=== PATIENT | male | born 1990 | race Caucasian/White ===

== ENCOUNTER → 2017-06-21 | Outpatient (CLI) | payer OTHER ==
[~2017-06-21] MED LIST: AMOX1TAB12 PO; FLONASE16 GM NS; GILTUSS TR TAB1 EACH PO; MUPIROCIN15 GM TP; PROTONIX40 MG; SINGULAIR10 MG PO; TUSSI PRES-B L120 M1 PO; VENTOLIN HFA18 GM IH; ZITHROMAX TRI-500 MG PO; ZOVIRAX15 GM TP; ZOVIRAX400 M1 PO; ZYRTEC10 MG PO
== END | disposition home or self-care (01) ==
LOC: PPHC 11:20
DX: R42 Dizziness and giddiness (principal)

== ENCOUNTER 2018-05-16 09:41 | Outpatient (CLI) | payer OTHER | END 2018-05-16 10:13 | disposition home or self-care (01) | LOC: LAB 09:41 | DX: E03.8 Other specified hypothyroidism (principal); R10.9 Unspecified abdominal pain; Z13.1 Encounter for screening for diabetes mellitus; E78.2 Mixed hyperlipidemia; E55.9 Vitamin D deficiency, unspecified; Z11.3 Encounter for screening for infections with a predominantly sexual mode of transmission; Z11.4 Encounter for screening for human immunodeficiency virus [HIV] ==

== ENCOUNTER 2021-11-30 23:10 | Emergency (ER) | payer OTHER ==
[~2021-11-30] VITALS: Ht 172.7 cm; Wt 68.0 kg
[2021-12-02] MEDS ORDERED: PHENTERMINE H37.5 M1 (07:57)
[2021-12-02] MEDS ORDERED: DIPHENOXYLATE-1 EACH PO (12:27)
[2021-12-02] MEDS ORDERED: PROTONIX40 MG PO (12:27)
[2021-12-02] MEDS ORDERED: LEVSIN/SL0.125 MG SL (12:28)
== END 2021-12-01 14:23 | disposition left against medical advice (07) ==
LOC: ER 23:10
DX: R10.11 Right upper quadrant pain (principal); Z20.822 Contact with and (suspected) exposure to COVID-19; K80.20 Calculus of gallbladder without cholecystitis without obstruction

== ENCOUNTER 2021-12-01 15:09 | Inpatient (IN) | payer OTHER ==
[~2021-12-01] VITALS: Ht 172.7 cm; Wt 68.0 kg
--- NOTE | 2021-12-01 16:05 | NUR ---
SE RECIBE PTE ALERTA Y ORIENTADOX3 EL CUAL REFIERE VENIR POR DOLOR ABDOMINAL. SE MIDEN S/V A PTE Y SE COLOCA EN BLAYNE.
[2021-12-02] MEDS ORDERED: PHENTERMINE H37.5 M1 (07:57)
[2021-12-02] MEDS ORDERED: PROTONIX40 MG PO (12:27)
[2021-12-02] MEDS ORDERED: DIPHENOXYLATE-1 EACH PO (12:27)
[2021-12-02] MEDS ORDERED: LEVSIN/SL0.125 MG SL (12:28)
== END 2021-12-02 14:20 | disposition home or self-care (01) | DRG 446 ==
LOC: ER 15:09 → SURG 16:20
PROVIDERS: ADMIT Surgery; ATTEND Surgery
PROC: BF37ZZZ Magnetic Resonance Imaging (MRI) of Pancreas (ICD-10-PCS; principal; 2021-12-01)
DX: K80.11 Calculus of gallbladder with chronic cholecystitis with obstruction (principal); K58.8 Other irritable bowel syndrome; E80.6 Other disorders of bilirubin metabolism; Z20.822 Contact with and (suspected) exposure to COVID-19

== ENCOUNTER 2021-12-07 14:38 | Inpatient (IN) | payer OTHER ==
[~2021-12-07] VITALS: Ht 172.7 cm; Wt 68.0 kg
[~2021-12-07 14:38] MED LIST changes: +DIPHENOXYLATE-1 EACH PO; +LEVSIN/SL0.125 MG SL; +PHENTERMINE H37.5 M1; +PROTONIX40 MG PO
--- NOTE | 2021-12-07 14:50 | NUR ---
SE RECIBE PTE ALERTA, ORIENTADO X 3 ESFERAS REFIERE DOLOR ABDOMINAL SE ESTIMAN S/V SE UBICA EN AREA DE OBSERVACION.
--- NOTE | 2021-12-07 16:22 | NUR ---
PTE MASCULINO EVALUADO POR . SE ORIENTA SOBRE ORDENES DE TX REFIERE COMPRENDER. SE COLECTAN MUESTRAS DE LABORATORIOS Y SE CANALIZA VENA BAJO MEDIDAS ASEPTICAS. SE ADMINISTRA MEDICAMENTOS, BAJO MEDIDAS ASEPTICAS.
[2021-12-11] MEDS ORDERED: ULTRACET PO (10:09)
== END 2021-12-11 12:28 | disposition home or self-care (01) | DRG 419 ==
LOC: ER 14:38 → SURH 18:03
PROVIDERS: ADMIT Surgery; ATTEND Surgery
PROC: BF53200 Other Imaging of Gallbladder and Bile Ducts using Fluorescing Agent, Indocyanine Green Dye, Intraoperative (ICD-10-PCS; 2021-12-09)
PROC: 0FT44ZZ Resection of Gallbladder, Percutaneous Endoscopic Approach (ICD-10-PCS; principal; 2021-12-09 07:00)
DX: K80.11 Calculus of gallbladder with chronic cholecystitis with obstruction (principal); R10.11 Right upper quadrant pain; K58.8 Other irritable bowel syndrome; Z20.822 Contact with and (suspected) exposure to COVID-19

== ENCOUNTER 2024-04-03 13:18 | Inpatient (IN) | payer OTHER ==
[~2024-04-03] VITALS: Ht 172.7 cm; Wt 65.8 kg
[~2024-04-03 13:18] MED LIST changes: +METOCLOPRAMIDE10 MG; +REGLAN5 MG/5 ML; +ULTRACET PO; +ursodiol PO
[2024-04-03] MEDS ORDERED: DESCOVY 200-251 EACH (13:52)
--- NOTE | 2024-04-03 13:54 | NUR ---
SE RECIBE PACIENTE ALERTA Y ORIENTADO X 3 ESFERAS EL CUAL INDICA QUE PRESENTA CELLULITIS EN BRAZO DERECHO DESDE HACE DOS SHABAZZ. REFIERE QUE BAZAN PRESENTADO EPISODIOS DE FIEBRE.
[2024-04-03] MEDS ORDERED: RINGERS SOLUTION,LACTATED 1,000 ML IV STA (14:41)
[2024-04-03] MEDS ORDERED: PIPERACILLIN/TAZOBACTAM SODIUM 3.375 GM VIAL IV STA (15:19)
[2024-04-03] MEDS ORDERED: 0.9 % SODIUM CHLORIDE 1,000 ML IV SCH (15:30)
[2024-04-03] MEDS ORDERED: PIPERACILLIN/TAZOBACTAM SODIUM 3.375 GM VIAL IV ONE (16:20)
[2024-04-03 17:19] LABS: HEMATOCRIT 44.6 % (39.0-48.0); HEMOGLOBIN 14.8 g/dL (13-16.00); MEAN CORPUSCULAR HEMOGLOBIN 31.3 pg (27.00-32.0); MEAN CORPUSCULAR HGB CONC 33.3 g/dl (32.0-36.0); PLATELET COUNT 391 K/uL (150-450); RED BLOOD COUNT 4.74 M/uL (4.00-6.00); RED CELL DISTRIBUTION WIDTH 13.1 % (11.5-14.5)
--- NOTE | 2024-04-03 17:19 | NUR ---
PACIENTE ALERTA Y ORIENTADO X3. SE EDUCA A PACIENTE SOBRE PROCESO DE CORBIN DE MUESTRAS, CANALIZACION Y ADMINISTRACION DE MEDICAMENTOS, REFIERE ENTENDER. SE EJECUTAN ORDENES BAJO MEDIDAS ASEPTICAS.
[2024-04-03 17:20] LABS: PH,URINE 6.5 (5.0-8.0); URINE APPEARANCE Clear; URINE BILIRRUBIN Negative (NEGATIVE); URINE BLOOD Negative; URINE COLOR Yellow; URINE GLUCOSE Negative (NEGATIVE); URINE KETONE Negative (NEGATIVE); URINE LEUKOCYTE Negative; URINE NITRATE Negative; URINE PROTEIN Negative (NEGATIVE)
[2024-04-03 17:21] LABS: URINE RBC 4.5 uL (0.0-20.8); URINE WBC 13.2 uL (0.0-23.2)
[2024-04-03 17:23] LABS: URINE BACTERIA 2.4 uL (0.0-1933); URINE CAST 0.14 uL (0.0-1.40); URINE EPITHELIAL CELLS 1.2 uL (0.0-38.8)
[2024-04-03 17:43] LABS: INR 1.03; PARTIAL THROMBOPLASTIN TIME 29.7 SECONDS (22.0-34.0); PROTHROMBIN TIME 11.2 SECONDS (9.0-11.5)
[2024-04-03 18:02] LABS: ALBUMIN 3.9 gm/dL (3.4-5.0); BILIRUBIN TOTAL 1.74 mg/dL (0.3-1.2); BILIRUBIN,CONJUGATED 0.28 mg/dL (0.0-0.2); BILIRUBIN,UNCONJUGATED 1.46 mg/dL (0.0-0.6); CALCIUM 9.6 mg/dL (8.5-10.1); CREATININE SERUM 0.98 mg/dL (0.70-1.30); GFR 87.04; POTASSIUM 4.39 mEq/L (3.5-5.1); TOTAL PROTEIN 7.8 gm/dL (6.4-8.2)
[2024-04-03] MEDS ORDERED: ACETAMINOPHEN 500 MG GEL..CAP PO ONE (18:10)
[2024-04-03] MEDS ORDERED: VANCOMYCIN HCL 1,000 MG VIAL IV SCH (18:36)
[2024-04-03] MEDS ORDERED: KETOROLAC TROMETHAMINE 30 MG VIAL IV PRN (18:45)
[2024-04-03] MEDS ORDERED: TRAMADOL HCL 50 MG TABLET PO PRN (18:45)
[2024-04-03] MEDS ORDERED: RINGERS SOLUTION,LACTATED 1,000 ML IV SCH (18:45)
[2024-04-03] MEDS ORDERED: VANCOMYCIN HCL 1,000 MG VIAL ONE (20:28)
[2024-04-03 21:30] VITALS: BP 124/78; O2SAT 96
[2024-04-04] MEDS ORDERED: ACETAMINOPHEN 500 MG GEL..CAP PO ONE (04:17)
[2024-04-04 05:30] VITALS: BP 98/52
[2024-04-04 06:16] LABS: HEMATOCRIT 41.3 % (39.0-48.0); HEMOGLOBIN 14.2 g/dL (13-16.00); MEAN CELL VOLUME 93.7 fL (80.0-100.00); MEAN CORPUSCULAR HEMOGLOBIN 32.1 pg (27.00-32.0); MEAN CORPUSCULAR HGB CONC 34.3 g/dl (32.0-36.0); PLATELET COUNT 344 K/uL (150-450); RED BLOOD COUNT 4.41 M/uL (4.00-6.00); RED CELL DISTRIBUTION WIDTH 13.3 % (11.5-14.5)
[2024-04-04 06:38] LABS: ALBUMIN 3.4 gm/dL (3.4-5.0); BILIRUBIN TOTAL 2.36 mg/dL (0.3-1.2); CREATININE SERUM 0.81 mg/dL (0.70-1.30); GFR 108.44; GLOBULINA 3.4 G/DL (2.4-3.5); MAGNESIUM 2.2 mg/dL (1.8-2.4); PHOSPHOROUS 2.9 mg/dL (2.5-4.9); POTASSIUM 4.28 mEq/L (3.5-5.1); TOTAL PROTEIN 6.8 gm/dL (6.4-8.2)
[2024-04-04 08:19] VITALS: BP 109/67
[2024-04-04] MEDS ORDERED: CEFTRIAXONE SODIUM 2,000 MG VIAL IV SCH (09:00)
[2024-04-04] MEDS ORDERED: PANTOPRAZOLE SODIUM 40 MG TABLET.DR PO SCH (09:00)
[2024-04-04] MEDS ORDERED: EMTRICITABINE/TENOFOV ALAFENAM 1 EACH TABLET PO SCH (16:00)
[2024-04-04 17:20] VITALS: BP 111/70; O2SAT 100
[2024-04-05 02:34] VITALS: BP 115/62
[2024-04-05 09:17] VITALS: BP 123/80; O2SAT 99
[2024-04-05] MEDS ORDERED: DIPHENHYDRAMINE HCL 50 MG/ML VIAL 1ML IV SCH (13:00)
[2024-04-05] MEDS ORDERED: METHYLPREDNISOLONE SOD SUCC 40 MG VIAL IV SCH (17:21)
[2024-04-05 17:41] VITALS: BP 114/71
[2024-04-06 01:38] VITALS: BP 104/62; O2SAT 96
[2024-04-06 08:24] VITALS: BP 111/64; O2SAT 98
[2024-04-06] MEDS ORDERED: CIPRO500 MG PO (14:29)
[2024-04-06] MEDS ORDERED: INTESTINEX680 M1 PO (14:29)
[2024-04-06] MEDS ORDERED: CLARITIN10 MG PO (14:29)
[2024-04-06] MEDS ORDERED: MEDROLPACK PO (14:30)
[2024-04-06 16:49] VITALS: BP 125/71; O2SAT 98
== END 2024-04-06 19:02 | disposition home or self-care (01) | DRG 603 ==
LOC: ER 13:21 → MEDJ 20:35 → MEDI 20:35 → SEC-K 20:35 → MEDJ 04-04 04:00 → MEDI 04-05 12:56
PROVIDERS: General Practice; ADMIT Internal Medicine; ATTEND Internal Medicine
PROC: B54MZZZ Ultrasonography of Right Upper Extremity Veins (ICD-10-PCS; principal; 2024-04-03)
DX: L03.113 Cellulitis of right upper limb (principal); E80.4 Gilbert syndrome; D72.828 Other elevated white blood cell count; L53.8 Other specified erythematous conditions; Z20.2 Contact with and (suspected) exposure to infections with a predominantly sexual mode of transmission